=== PATIENT | male | born 1975 | race Caucasian/White ===

== ENCOUNTER 2022-04-22 09:15 | Outpatient (CLI) | payer OTHER, SELFPAY ==
[2022-04-22 18:47] LABS: Hematocrit 38.7 % (42.0-52.0); Hemoglobin 12.3 g/dL (14.0-18.0); Mean Corpuscular HGB Conc 31.8 g/dl (32-36); Mean Corpuscular Hemoglobin 28.5 pg (26-34); Mean Corpuscular Volume 89.6 fl (80-100); Mean Platelet Volume 11.4 fl (7.4-10.4); Platelet Count Result 171 k/mm3 (150-375); Red Blood Count 4.32 M/mm3 (4.6-6.20); Red Cell Distribution Width 13.6 % (11.5-14.5); White Blood Count 5.1 K/mm3 (4.5-10.0)
[2022-04-22 20:39] LABS: Prostate Specific Antigen 0.4 ng/mL (< OR = 4.0)
[2022-04-22 21:24] LABS: Alanine Aminotransferase 59 U/L (6-50); Albumin Level 4.4 g/dL (3.5-5.1); Alkaline Phosphatase 94 U/L (38-126); Anion Gap 10 mmol/L (8-16); Aspartate Amino Transferase 41 U/L (17-59); Bilirubin,Total 0.6 mg/dL (0.2-1.3); Blood Urea Nitrogen 22 mg/dL (9-20); Carbon Dioxide 28 mmol/L (22-30); Chloride 102 mmol/L (98-107); Estimated Glomerular Filt Rate > 60; Glucose 97 mg/dL (65-110); Potassium 3.9 mmol/L (3.4-5.0); Sodium 140 mmol/L (137-145)
[2022-04-25 05:53] LABS: Prolactin 9.5 ng/mL (***)
[2022-04-27 18:51] LABS: Testosterone Total 253 ng/dL (250-1100)
== END 2022-04-22 09:16 | disposition home or self-care (01) ==
LOC: ANHGOSHLAB 09:19
PROVIDERS: PCP Internal Medicine; Visit Provider Internal Medicine
DX: Z12.5 Encounter for screening for malignant neoplasm of prostate (principal); E29.1 Testicular hypofunction; I42.9 Cardiomyopathy, unspecified; I51.7 Cardiomegaly
CPT/HCPCS: 36415; 80053; 84146; 84153; 84402; 84403; 85027; G0103

== ENCOUNTER 2022-08-05 10:47 | Outpatient (CLI) | payer OTHER, SELFPAY ==
[2022-08-05 19:47] LABS: Basophils Percent Auto 0.3 % (0.2-1.2); Eosinophils Absolute Auto 0.2 K/mm3 (0-0.3); Eosinophils Percent Auto 2.6 % (0-4.4); Hematocrit 42.1 % (42.0-52.0); Hemoglobin 13.1 g/dL (14.0-18.0); Immature Granulocyte Absolute 0.02 K/mm3 (0.00-0.031); Immature Granulocyte Percent A 0.3 % (0-0.5); Lymphocytes Absolute Auto 0.94 K/mm3 (0.9-3.2); Mean Corpuscular HGB Conc 31.1 g/dl (32-36); Mean Corpuscular Hemoglobin 26.5 pg (26-34); Mean Corpuscular Volume 85.2 fl (80-100); Mean Platelet Volume 9.8 fl (7.4-10.4); Monocytes Absolute Auto 0.6 K/mm3 (0.1-0.6); Monocytes Percent Auto 10.9 % (2.6-8.5); Neutrophils Absolute Auto 4.1 K/mm3 (1.3-6.7); Neutrophils Percent Auto 69.9 % (45.5-73.1); Platelet Count Result 186 k/mm3 (150-375); Red Blood Count 4.94 M/mm3 (4.6-6.20); Red Cell Distribution Width 14.5 % (11.5-14.5); White Blood Count 5.9 K/mm3 (4.5-10.0)
[2022-08-05 20:37] LABS: Anion Gap 6 mmol/L (8-16); Blood Urea Nitrogen 35 mg/dL (9-20); Calcium 8.5 mg/dL (8.4-10.2); Carbon Dioxide 30 mmol/L (22-30); Chloride 99 mmol/L (98-107); Estimated Glomerular Filt Rate 51; Glucose 86 mg/dL (65-110); Potassium 4.6 mmol/L (3.4-5.0); Sodium 135 mmol/L (137-145)
[2022-08-09 22:51] LABS: Tacrolimus Prograf 13.6 mcg/L
== END 2022-08-05 10:48 | disposition home or self-care (01) ==
LOC: ANHGOSHLAB 10:49
PROVIDERS: PCP Internal Medicine; Visit Provider Nurse Practitioner
DX: Z13.29 Encounter for screening for other suspected endocrine disorder (principal); Z94.1 Heart transplant status
CPT/HCPCS: 36415; 80048; 80197; 85025

== ENCOUNTER 2022-09-06 11:09 | Outpatient (CLI) | payer OTHER, SELFPAY ==
[2022-09-06 21:23] LABS: Anion Gap 6 mmol/L (8-16); Blood Urea Nitrogen 33 mg/dL (9-20); Calcium 8.4 mg/dL (8.4-10.2); Carbon Dioxide 29 mmol/L (22-30); Chloride 101 mmol/L (98-107); Estimated Glomerular Filt Rate 60; Glucose 78 mg/dL (65-110); Potassium 4.3 mmol/L (3.4-5.0); Sodium 136 mmol/L (137-145)
[2022-09-06 21:47] LABS: Basophils Percent Auto 0.3 % (0.2-1.2); Eosinophils Absolute Auto 0.1 K/mm3 (0-0.3); Eosinophils Percent Auto 2.3 % (0-4.4); Hematocrit 43.6 % (42.0-52.0); Hemoglobin 13.5 g/dL (14.0-18.0); Immature Granulocyte Absolute 0.02 K/mm3 (0.00-0.031); Immature Granulocyte Percent A 0.3 % (0-0.5); Lymphocytes Absolute Auto 0.96 K/mm3 (0.9-3.2); Lymphocytes Percent Auto 16.1 % (18.3-44.2); Mean Corpuscular Hemoglobin 25.8 pg (26-34); Mean Corpuscular Volume 83.4 fl (80-100); Mean Platelet Volume 10.9 fl (7.4-10.4); Monocytes Absolute Auto 0.7 K/mm3 (0.1-0.6); Monocytes Percent Auto 12.4 % (2.6-8.5); Neutrophils Absolute Auto 4.1 K/mm3 (1.3-6.7); Neutrophils Percent Auto 68.6 % (45.5-73.1); Platelet Count Result 192 k/mm3 (150-375); Red Blood Count 5.23 M/mm3 (4.6-6.20); Red Cell Distribution Width 16.6 % (11.5-14.5)
[2022-09-10 11:00] LABS: Tacrolimus Prograf 9.2 mcg/L
== END 2022-09-06 11:10 | disposition home or self-care (01) ==
LOC: ANHGOSHLAB 11:14
PROVIDERS: PCP Internal Medicine; Visit Provider Internal Medicine
DX: Z94.1 Heart transplant status (principal)
CPT/HCPCS: 36415; 80048; 80197; 85025

== ENCOUNTER 2022-10-04 10:36 | Outpatient (CLI) | payer OTHER, SELFPAY ==
[2022-10-04 21:28] LABS: Alanine Aminotransferase 43 U/L (6-50); Albumin Level 4.5 g/dL (3.5-5.1); Alkaline Phosphatase 50 U/L (38-126); Aspartate Amino Transferase 52 U/L (17-59); Bilirubin,Total 0.9 mg/dL (0.2-1.3)
[2022-10-13 14:40] LABS: Testosterone Free 290.3 pg/mL (35.0-155.0); Testosterone Total 1161 ng/dL (250-1100)
== END 2022-10-04 10:37 | disposition home or self-care (01) ==
LOC: ANHGOSHLAB 10:39
PROVIDERS: PCP Internal Medicine; Visit Provider Internal Medicine
DX: Z51.81 Encounter for therapeutic drug level monitoring (principal); Z79.890 Hormone replacement therapy
CPT/HCPCS: 36415; 80076; 84402; 84403

== ENCOUNTER 2022-10-21 11:28 | Outpatient (CLI) | payer OTHER, SELFPAY ==
[2022-10-21 20:06] LABS: Prostate Specific Antigen 0.5 ng/mL (< OR = 4.0)
[2022-10-27 16:14] LABS: Testosterone Free 376.5 pg/mL (35.0-155.0); Testosterone Total 1488 ng/dL (250-1100)
== END 2022-10-21 11:29 | disposition home or self-care (01) ==
LOC: ANHGOSHLAB 11:30
PROVIDERS: PCP Internal Medicine; Visit Provider Internal Medicine
DX: Z12.5 Encounter for screening for malignant neoplasm of prostate (principal); Z79.890 Hormone replacement therapy
CPT/HCPCS: 36415; 84153; 84402; 84403; G0103

== ENCOUNTER 2022-11-21 18:59 | Emergency (ER) | payer OTHER, SELFPAY ==
[2022-11-21] VITALS (14 sets, daily range): BP systolic 137; BP diastolic 89; PULSE 104–111; RESP 15–30; TEMP 38.1; O2SAT 93–100
--- NOTE | ~2022-11-21 | XR_ITS ---
Clinical Indication: Pneumonia PA and lateral views of the chest: Comparison: 01/20/2015 Findings: The lungs are clear, without evidence of focal consolidation or pleural effusion. Cardiome diastinal silhouette is stable. Bones and soft tissues are unremarkable. Impression: Clear lungs. Reviewed, dictated and finalized at location . Impression: Clear lungs.
--- NOTE | 2022-11-21 19:28 | ECG_ITS ---
Measurements Intervals [place] Rate: 103 P: 71 SC: 166 QRS: 98 QRSD: 88 T: 56 QT: 307 QTc: 403 Interpretive Statements SINUS TACHYCARDIA POSSIBLE LEFT ATRIAL ENLARGEMENT [-0.1mV P WAVE IN V1/V2] INCOMPLETE RIGHT BUNDLE BRANCH BLOCK LOW QRS VOLTAGE ABNORMAL ECG NO PREVIOUS ECG AVAILABLE FOR COMPARISON Electronically Signed On 11-22-2022 7:07:28 CDT by Daryl Ralph M.D.
[2022-11-21] MEDS: ONDANSETRON INJ 4 MG/2 ML VIAL 8 MG IV PUSH (19:54)
[2022-11-21 19:57] LABS: Basophils Percent Auto 0.2 % (0.2-1.2); Eosinophils Absolute Auto 0.1 K/mm3 (0-0.3); Eosinophils Percent Auto 0.8 % (0-4.4); Hematocrit 51.1 % (42.0-52.0); Hemoglobin 16.2 g/dL (14.0-18.0); Immature Granulocyte Absolute 0.02 K/mm3 (0.00-0.031); Immature Granulocyte Percent A 0.3 % (0-0.5); Lymphocytes Absolute Auto 0.61 K/mm3 (0.9-3.2); Lymphocytes Percent Auto 9.5 % (18.3-44.2); Mean Corpuscular HGB Conc 31.7 g/dl (32-36); Mean Corpuscular Hemoglobin 24.8 pg (26-34); Mean Corpuscular Volume 78.3 fl (80-100); Mean Platelet Volume 9.2 fl (7.4-10.4); Monocytes Absolute Auto 0.5 K/mm3 (0.1-0.6); Monocytes Percent Auto 8.4 % (2.6-8.5); Neutrophils Absolute Auto 5.2 K/mm3 (1.3-6.7); Neutrophils Percent Auto 80.8 % (45.5-73.1); Platelet Count Result 152 k/mm3 (150-375); Red Blood Count 6.53 M/mm3 (4.6-6.20); Red Cell Distribution Width 19.8 % (11.5-14.5); White Blood Count 6.4 K/mm3 (4.5-10.0)
[2022-11-21] MEDS: SODIUM CHLORIDE 0.9% IV 2,000 ML 999 ML IV CONT (20:16)
[2022-11-21 20:22] LABS: Strep Group A RT-PCR NOT DETECTED (Negative)
[2022-11-21] MEDS: ALBUTEROL SULFATE NEB 2.5 MG/3 ML INH 5 MG INHALATION (20:29)
[2022-11-21] MEDS: IPRATROPIUM BR 0.02% INH SOLN 0.5 MG/2.5 ML VIAL 1 MG INHALATION (20:29)
[2022-11-21 20:49] LABS: Alanine Aminotransferase 35 U/L (6-50); Albumin Level 4.5 g/dL (3.5-5.1); Alkaline Phosphatase 45 U/L (38-126); Anion Gap 6 mmol/L (8-16); Aspartate Amino Transferase 34 U/L (17-59); Bilirubin,Total 1.5 mg/dL (0.2-1.3); Blood Urea Nitrogen 26 mg/dL (9-20); Calcium 8.1 mg/dL (8.4-10.2); Carbon Dioxide 28 mmol/L (22-30); Chloride 102 mmol/L (98-107); Estimated CRCL calculation 91 ml/min; Estimated Glomerular Filt Rate 60; Glucose 112 mg/dL (65-110); Lipase 43 U/L (23-300); Potassium 4.7 mmol/L (3.4-5.0); Sodium 136 mmol/L (137-145)
[2022-11-21 21:00] LABS: Troponin I < 0.012 ng/mL (0.000-0.034)
--- NOTE | 2022-11-21 21:15 | ED.GENADULT ---
HPI - General Adult General Chief complaint: Nausea/Vomiting/Diarrhea Stated complaint: ST, N/V/D Time Seen by Provider: 11/21/22 19:34 History of Present Illness HPI narrative: This is a 47-year-old male presenting to ED with a chief complaint of flu-like symptoms times 1 day. Patient said he woke up this morning feeling ill. He has had multiple episodes of nausea vomiting and congestion. He has also had several episodes of diarrhea. Patient has several sick children at home are sick with strep throat. The patient denies difficulty breathing, chest pain, Lower extremity edema, abdominal pain or urinary symptoms. The patient does have a history of a heart transplant. He is well controlled but is on immunomodulators. Related Data Home Medications Medication Instructions Recorded Confirmed aspirin 81 mg tablet,delayed 81 mg PO DAILY 08/29/19 04/22/22 release (Adult Low Dose Aspirin) furosemide 40 mg tablet (Lasix) 40 mg PO QAM 08/29/19 04/22/22 Magic Mouthwash 50 mL suspension 10 ml PO Q4H PRN #50 mL 04/22/22 04/22/22 cholecalciferol (vitamin D3) 50 50 mcg PO DAILY 04/22/22 04/22/22 mcg (2,000 unit) capsule losartan 50 mg tablet 50 mg PO DAILY 04/22/22 04/22/22 omeprazole 40 mg capsule,delayed 40 mg PO DAILY 04/22/22 04/22/22 release prednisone 5 mg tablet 5 mg PO DAILY 04/22/22 04/22/22 rosuvastatin 20 mg tablet (Crestor) 20 mg PO DAILY 04/22/22 04/22/22 sirolimus 0.5 mg tablet 0.5 mg PO DAILY 04/22/22 04/22/22 sulfamethoxazole 400 1 tablet PO .MWF 04/22/22 04/22/22 mg-trimethoprim 80 mg tablet (Bactrim) tacrolimus 4 mg tablet,extended 4 mg PO BID 04/22/22 04/22/22 release 24 hr Allergies Allergy/AdvReac Type Severity Reaction Status Date / Time Penicillins Allergy Unknown Unknown Verified 06/01/22 15:09 cephalexin AdvReac Intermediate Hives Verified 06/01/22 15:09 [facility] Past Medical History Medical History Cardiomyopathy CHF (congestive heart failure) Heart transplant recipient 03/22/2021 HTN (hypertension) Mitral valve prolapse TEODORA (obstructive sleep apnea) Sternum pain Surgical History Surgical History H/O tricuspid valve repair History of heart valve replacement History of mitral valve repair Status post heart transplant Family History Family History Father Hypertension Social History Social History Smoking status: Never smoker Alcohol intake: former Alcohol use details: rarely Substance use: never Substance use type: does not use Exam Narrative: APPEARANCE: patient appears uncomfortable Head: minor erythema and exudates to the posterior oropharynx EYES: EOMI, NOSE: Atraumatic NECK: Trachea midline RESPIRATORY: No increased rate of breathing, scattered expiratory wheezing, CARDIOVASCULAR: RRR, no peripheral edema ABDOMINAL: Non-distended soft nontender no guarding rebound MUSCULOSKELETAl: No obvious deformities NEURO: Alert. Moving 4/4 extremities SKIN:: Warm, dry. Normal color PSYCHIATRIC: Normal affect Course Vital Signs Vital signs: Vital Signs Temperature 100.6 F H 11/21/22 19:10 Pulse Rate 108 H 11/21/22 19:10 Respiratory Rate 30 H 11/21/22 19:10 Blood Pressure 137/89 11/21/22 19:10 Pulse Oximetry 96 11/21/22 19:10 Oxygen Delivery Room Air 11/21/22 19:10 Temperature 100.6 F H 11/21/22 19:10 Pulse Rate 105 H 11/21/22 23:15 Respiratory Rate 23 H 11/21/22 23:15 Blood Pressure 137/89 11/21/22 19:10 Pulse Oximetry 99 11/21/22 23:15 Oxygen Delivery Room Air 11/21/22 19:10 Medical Decision Making MDM Narrative Medical decision making narrative: -Presentation: 47-year-old male with history of heart transplant presenting ED with flu-like symptoms x1 day. -DDX includes but is not limited to:
[2022-11-21] MEDS: AMOXICILLIN 500 MG CAPSULE PO (21:58)
[2022-11-21 22:10] LABS: Influenza A QL RT-PCR Negative (Negative); Influenza B QL RT-PCR Negative (Negative); RSV RNA, RT-PCR Negative (Negative); SARS-CoV-2 RNA PCR Negative (Negative)
[2022-11-21 23:57] LABS: Troponin I < 0.012 ng/mL (0.000-0.034)
== END 2022-11-22 00:46 | disposition home or self-care (01) ==
PROVIDERS: Emergency Provider Emergency Medicine; PCP Internal Medicine
DX: B34.9 Viral infection, unspecified (principal); I11.0 Hypertensive heart disease with heart failure; I50.9 Heart failure, unspecified; Z94.1 Heart transplant status; Z20.822 Contact with and (suspected) exposure to COVID-19
CPT/HCPCS: 36415; 71046; 80053; 83690; 84484; 85025; 87637; 87651; 93005; 94640; 96361; 96374; 96375; 99284; A9270; J0131; J2405; J7030

== ENCOUNTER 2023-02-06 14:10 | Emergency (ER) | payer OTHER, SELFPAY ==
--- NOTE | ~2023-02-06 | XR_ITS ---
EXAMINATION: XR chest 2V Exam Date/Time: 02/06/2023 14:35 CDT HISTORY: sob, hx heart transplant Comparison: 11/21/2022. RESULT: Lines, tubes, and devices: Intact sternotomy wires. Mediastinal vascular clips. Lungs and pleura: Clear. Cardiomediastinal silhouette: Stable. Other: No acute osseous or upper abdominal finding. IMPRESSION: No acute cardiopulmonary process. Reviewed, dictated and finalized at location K.
--- NOTE | 2023-02-06 14:17 | ED.GENADULT ---
HPI - General Adult General Chief complaint: Upper Respiratory Infection Stated complaint: trouble breathing,high temp Source: patient and RN notes reviewed History of Present Illness HPI narrative: 47-year-old male with history of heart transplant in 2020, presents to urgent care with complaints of shortness of breath and subjective fever since last night. Pt reports generalized body aches and fatigue. Pt states his SOB was worse when he lies down. Denies any chest pain, abdominal pain, vomiting, cough, sore throat, congestion, ear pain, or diarrhea. Pt took Tylenol BRAIDED RUG MAKER. Related Data Home Medications Medication Instructions Recorded Confirmed cholecalciferol (vitamin D3) 50 50 mcg PO DAILY 04/22/22 02/06/23 mcg (2,000 unit) capsule losartan 50 mg tablet 50 mg PO DAILY 04/22/22 02/06/23 prednisone 5 mg tablet 5 mg PO DAILY 04/22/22 02/06/23 rosuvastatin 20 mg tablet (Crestor) 20 mg PO DAILY 04/22/22 02/06/23 sulfamethoxazole 400 1 tablet PO .MWF 04/22/22 02/06/23 mg-trimethoprim 80 mg tablet (Bactrim) tacrolimus 4 mg tablet,extended 4 mg PO BID 04/22/22 02/06/23 release 24 hr mycophenolate mofetil 500 mg tablet 500 mg PO BID 02/06/23 02/06/23 Allergies Allergy/AdvReac Type Severity Reaction Status Date / Time Penicillins Allergy Unknown Unknown Verified 02/06/23 14:19 cephalexin AdvReac Intermediate Hives Verified 02/06/23 14:19 Review of Systems Review of Systems: CONSTITUTIONAL: subjective fevers, fatigued EYES: Denies visual changes, redness, or discharge. ENT: Denies otalgia and sore throat CARDIOVASCULAR: Denies chest pain, palpitations, or edema. RESPIRATORY: dyspnea GASTROINTESTINAL: Denies abdominal pain, nausea, vomiting, or diarrhea. GENITOURINARY: Denies dysuria or hematuria. SKIN: Denies rash or itching. MUSCULOSKELETAL: body aches NEUROLOGIC: Denies headache, numbness, or weakness. Pertinent positives per HPI. [facility] Past Medical History Medical History Cardiomyopathy CHF (congestive heart failure) CPAP (continuous positive airway pressure) dependence Heart transplant recipient 03/22/2021 HTN (hypertension) Mitral valve prolapse TEODORA (obstructive sleep apnea) Sternum pain Surgical History Surgical History H/O tricuspid valve repair History of heart valve replacement History of mitral valve repair Status post heart transplant Family History Family History Father Hypertension Social History Social History Smoking status: Never smoker Alcohol intake: former Alcohol use details: rarely Substance use: never Substance use type: does not use Lack of Transportation: No Lack of Food: Never True Current Housing: I Have Housing Concerned About Future Housing: No Difficulty Paying Gas/Electric Bills: Decline to Answer Difficulty Paying for Meds: Decline to Answer Currently Unemployed: No Education: Bachelor's Degree Difficulty w/ Childcare or Family Care: Decline to Answer Comments At the time of my signature, I reviewed and agree with the nursing past medical, surgical, social, and family history. There is no relevant family history pertinent to the patient complaint. Exam Narrative: GENERAL: This is a well-nourished, well-developed patient, in no apparent distress. HEAD: normocephalic, atraumatic. EYES: Sclera clear/white. Vision is grossly intact. EARS: External ears normal, auditory canals clear and without drainage, TMs normal without perforation. Hearing grossly intact. NOSE: External nose normal with no obvious nasal discharge, nares without redness, no rhinorrhea. THROAT: Mucous membranes moist, posterior pharynx clear. NECK: Neck supple, non-tender without lymphadenopathy, masses or thyromegaly. CARDIOVASCULAR
[2023-02-06 14:22] VITALS: BP 132/81; PULSE 103; RESP 16; TEMP 37.2; O2SAT 97
[2023-02-06 14:23] VITALS: BP 132/81; PULSE 103; RESP 16; TEMP 37.2; O2SAT 97
== END 2023-02-06 15:56 | disposition left against medical advice (07) ==
PROVIDERS: Emergency Provider Nurse Practitioner Family; PCP Internal Medicine
DX: J02.0 Streptococcal pharyngitis (principal); R06.00 Dyspnea, unspecified; Z94.1 Heart transplant status; I11.0 Hypertensive heart disease with heart failure; I50.9 Heart failure, unspecified; I34.1 Nonrheumatic mitral (valve) prolapse
CPT/HCPCS: 71046; 87880; 99213; G0463

== ENCOUNTER 2023-02-16 10:38 | Outpatient (CLI) | payer OTHER, SELFPAY ==
[2023-02-16 17:00] LABS: Folic Acid > 20.0 ng/mL (2.76->20)
[2023-02-21 13:01] LABS: Testosterone Free 529.4 pg/mL (35.0-155.0); Testosterone Total 1619 ng/dL (250-1100)
== END 2023-02-16 10:39 | disposition home or self-care (01) ==
LOC: ANHGOSHLAB 10:40
PROVIDERS: PCP Internal Medicine; Visit Provider Internal Medicine
DX: E29.1 Testicular hypofunction (principal); R53.83 Other fatigue; Z79.890 Hormone replacement therapy
CPT/HCPCS: 36415; 82607; 82746; 84402; 84403; 84443

== ENCOUNTER → 2023-04-05 13:34 | Outpatient (CLI) | payer OTHER, SELFPAY ==
--- NOTE | ~2023-04-05 | XR_ITS ---
EXAMINATION: XR chest 2V DATE: 04/05/2023 13:49 INDICATION: Heart transplant. TECHNIQUE: Frontal and lateral views of the chest were obtained on 4 radiographs. COMPARISON: Chest 2 views 02/06/2023 FINDINGS: There is no pneumonia, pleural effusion, or pneumothorax. The heart size is normal. There a re median sternotomy wires and mediastinal surgical clips. IMPRESSION: 1. No acute cardiopulmonary disease. Reviewed, dictated and finalized at location A.
== END ==
PROVIDERS: PCP Internal Medicine
DX: Z94.1 Heart transplant status (principal)
CPT/HCPCS: 71046

== ENCOUNTER 2023-09-16 10:52 | Outpatient (CLI) | payer OTHER, SELFPAY ==
[2023-09-16 17:50] LABS: Alanine Aminotransferase 39 U/L (6-50); Albumin Level 4.4 g/dL (3.5-5.1); Alkaline Phosphatase 41 U/L (38-126); Anion Gap 5 mmol/L (8-16); Aspartate Amino Transferase 59 U/L (17-59); Bilirubin,Total 1.3 mg/dL (0.2-1.3); Blood Urea Nitrogen 24 mg/dL (9-20); Carbon Dioxide 32 mmol/L (22-30); Chloride 101 mmol/L (98-107); Cholesterol 89 mg/dL (0-200); Estimated Glomerular Filt Rate > 60; Glucose 72 mg/dL (65-110); HDL Direct 34 mg/dL; Potassium 4.5 mmol/L (3.4-5.0); Sodium 138 mmol/L (137-145); Triglycerides 63 mg/dL (<150)
[2023-09-16 17:51] LABS: Basophils Absolute Auto 0.1 K/mm3 (0.0-0.1); Basophils Percent Auto 0.7 % (0.2-1.2); Eosinophils Absolute Auto 0.1 K/mm3 (0-0.3); Eosinophils Percent Auto 1.8 % (0-4.4); Hematocrit 53.4 % (42.0-52.0); Immature Granulocyte Absolute 0.02 K/mm3 (0.00-0.031); Immature Granulocyte Percent A 0.3 % (0-0.5); Lymphocytes Absolute Auto 1.49 K/mm3 (0.9-3.2); Lymphocytes Percent Auto 19.6 % (18.3-44.2); Mean Corpuscular HGB Conc 31.8 g/dl (32-36); Mean Corpuscular Hemoglobin 27.9 pg (26-34); Mean Corpuscular Volume 87.7 fl (80-100); Monocytes Absolute Auto 0.8 K/mm3 (0.1-0.6); Monocytes Percent Auto 10.2 % (2.6-8.5); Neutrophils Absolute Auto 5.1 K/mm3 (1.3-6.7); Neutrophils Percent Auto 67.4 % (45.5-73.1); Platelet Count Result 147 k/mm3 (150-375); Red Blood Count 6.09 M/mm3 (4.6-6.20); Red Cell Distribution Width 17.3 % (11.5-14.5); White Blood Count 7.6 K/mm3 (4.5-10.0)
[2023-09-16 18:01] LABS: LDL Cholesterol Direct 47 mg/dL
[2023-09-16 18:21] LABS: Prostate Specific Antigen 0.6 ng/mL (< OR = 4.0)
[2023-09-20 12:38] LABS: Testosterone Free 383.6 pg/mL (35.0-155.0); Testosterone Total 1442 ng/dL (250-1100)
== END 2023-09-16 10:53 | disposition home or self-care (01) ==
LOC: ANHGOSHLAB 10:54
PROVIDERS: PCP Internal Medicine; Visit Provider Clinical Nurse Specialist
DX: E29.1 Testicular hypofunction (principal); I10 Essential (primary) hypertension; Z79.890 Hormone replacement therapy
CPT/HCPCS: 36415; 80053; 80061; 84153; 84402; 84403; 85025

== ENCOUNTER 2023-10-19 10:44 | Outpatient (CLI) | payer OTHER, SELFPAY ==
[2023-10-19 15:03] LABS: Basophils Percent Auto 0.4 % (0.2-1.2); Eosinophils Absolute Auto 0.2 K/mm3 (0-0.3); Eosinophils Percent Auto 2.5 % (0-4.4); Hematocrit 55.1 % (42.0-52.0); Hemoglobin 17.5 g/dL (14.0-18.0); Immature Granulocyte Absolute 0.02 K/mm3 (0.00-0.031); Immature Granulocyte Percent A 0.3 % (0-0.5); Lymphocytes Absolute Auto 1.32 K/mm3 (0.9-3.2); Lymphocytes Percent Auto 19.4 % (18.3-44.2); Mean Corpuscular HGB Conc 31.8 g/dl (32-36); Mean Corpuscular Hemoglobin 28.4 pg (26-34); Mean Corpuscular Volume 89.4 fl (80-100); Mean Platelet Volume 10.7 fl (7.4-10.4); Monocytes Absolute Auto 0.7 K/mm3 (0.1-0.6); Monocytes Percent Auto 10.8 % (2.6-8.5); Neutrophils Absolute Auto 4.5 K/mm3 (1.3-6.7); Neutrophils Percent Auto 66.6 % (45.5-73.1); Platelet Count Result 145 k/mm3 (150-375); Red Blood Count 6.16 M/mm3 (4.6-6.20); Red Cell Distribution Width 17.7 % (11.5-14.5); White Blood Count 6.8 K/mm3 (4.5-10.0)
[2023-10-19 15:23] LABS: Anion Gap 6 mmol/L (8-16); Blood Urea Nitrogen 24 mg/dL (9-20); Calcium 8.9 mg/dL (8.4-10.2); Carbon Dioxide 26 mmol/L (22-30); Chloride 104 mmol/L (98-107); Estimated Glomerular Filt Rate > 60; Glucose 92 mg/dL (65-110); Potassium 4.2 mmol/L (3.4-5.0); Sodium 136 mmol/L (137-145)
[2023-10-22 10:53] LABS: Tacrolimus Prograf 7.9 mcg/L
== END 2023-10-19 10:45 | disposition home or self-care (01) ==
LOC: ANHGOSHLAB 10:48
PROVIDERS: PCP Internal Medicine
DX: Z94.1 Heart transplant status (principal)
CPT/HCPCS: 36415; 80048; 80197; 85025

== ENCOUNTER 2023-12-02 10:44 | Outpatient (CLI) | payer OTHER, SELFPAY ==
[2023-12-02 20:15] LABS: Mean Corpuscular HGB Conc 32.7 g/dl (32-36); Mean Corpuscular Hemoglobin 29.5 pg (26-34); Mean Platelet Volume 9.9 fl (7.4-10.4); Platelet Count Result 127 k/mm3 (150-375); Red Blood Count 6.11 M/mm3 (4.6-6.20); Red Cell Distribution Width 17.2 % (11.5-14.5); White Blood Count 7.3 K/mm3 (4.5-10.0)
[2023-12-07 11:13] LABS: Testosterone Free 418.5 pg/mL (35.0-155.0); Testosterone Total 1548 ng/dL (250-1100)
== END 2023-12-02 10:45 | disposition home or self-care (01) ==
LOC: ANHGOSHLAB 10:45
PROVIDERS: PCP Internal Medicine; Visit Provider Internal Medicine
DX: E29.1 Testicular hypofunction (principal); Z79.890 Hormone replacement therapy
CPT/HCPCS: 36415; 84402; 84403; 85027

== ENCOUNTER 2024-05-24 11:22 | Outpatient (CLI) | payer OTHER, SELFPAY ==
[2024-05-24 18:51] LABS: Basophils Percent Auto 0.4 % (0.2-1.2); Eosinophils Absolute Auto 0.2 K/mm3 (0-0.3); Eosinophils Percent Auto 2.5 % (0-4.4); Hemoglobin 17.3 g/dL (14.0-18.0); Immature Granulocyte Absolute 0.02 K/mm3 (0.00-0.031); Immature Granulocyte Percent A 0.3 % (0-0.5); Lymphocytes Absolute Auto 1.25 K/mm3 (0.9-3.2); Lymphocytes Percent Auto 18.4 % (18.3-44.2); Mean Corpuscular HGB Conc 32.6 g/dl (32-36); Mean Corpuscular Hemoglobin 30.2 pg (26-34); Mean Corpuscular Volume 92.7 fl (80-100); Mean Platelet Volume 10.2 fl (7.4-10.4); Monocytes Absolute Auto 0.8 K/mm3 (0.1-0.6); Monocytes Percent Auto 11.2 % (2.6-8.5); Neutrophils Absolute Auto 4.6 K/mm3 (1.3-6.7); Neutrophils Percent Auto 67.2 % (45.5-73.1); Platelet Count Result 140 k/mm3 (150-375); Red Blood Count 5.72 M/mm3 (4.6-6.20); Red Cell Distribution Width 14.6 % (11.5-14.5); White Blood Count 6.8 K/mm3 (4.5-10.0)
[2024-05-31 18:03] LABS: Testosterone Free 166.5 pg/mL (35.0-155.0); Testosterone Total 561 ng/dL (250-1100)
== END 2024-05-24 11:23 | disposition home or self-care (01) ==
LOC: ANHGOSHLAB 11:25
PROVIDERS: PCP Internal Medicine; Visit Provider Internal Medicine
DX: E78.00 Pure hypercholesterolemia, unspecified (principal); I10 Essential (primary) hypertension; Z79.890 Hormone replacement therapy; Z94.1 Heart transplant status
CPT/HCPCS: 36415; 84402; 84403; 85025

== ENCOUNTER 2024-05-24 11:29 | Outpatient (RCR) | payer OTHER, SELFPAY ==
[2024-05-24 19:51] LABS: Anion Gap 8 mmol/L (4-12); Blood Urea Nitrogen 23 mg/dL (9-20); Calcium 9.1 mg/dL (8.4-10.2); Carbon Dioxide 31 mmol/L (22-30); Chloride 99 mmol/L (98-107); Estimated Glomerular Filt Rate 59; Glucose 86 mg/dL (65-110); Potassium 4.6 mmol/L (3.4-5.0); Sodium 138 mmol/L (137-145)
[2024-05-25 16:27] LABS: Tacrolimus Prograf 6.7 mcg/L
== END 2024-08-22 23:59 | disposition home or self-care (01) ==
LOC: ANHGOSHLAB 11:29
PROVIDERS: PCP Internal Medicine
DX: Z94.1 Heart transplant status (principal)
CPT/HCPCS: 36415; 80048; 80197; 84402; 84403; 85025

== ENCOUNTER 2024-08-28 10:58 | Outpatient (RCR) | payer OTHER, SELFPAY ==
[2024-08-28 13:36] LABS: Basophils Percent Auto 0.3 % (0.2-1.2); Eosinophils Absolute Auto 0.2 K/mm3 (0-0.3); Eosinophils Percent Auto 5.5 % (0-4.4); Hematocrit 55.1 % (42.0-52.0); Hemoglobin 17.3 g/dL (14.0-18.0); Immature Granulocyte Absolute 0.01 K/mm3 (0.00-0.031); Immature Granulocyte Percent A 0.3 % (0-0.5); Lymphocytes Absolute Auto 1.08 K/mm3 (0.9-3.2); Lymphocytes Percent Auto 28.3 % (18.3-44.2); Mean Corpuscular HGB Conc 31.4 g/dl (32-36); Mean Corpuscular Volume 92.3 fl (80-100); Mean Platelet Volume 10.1 fl (7.4-10.4); Monocytes Absolute Auto 0.6 K/mm3 (0.1-0.6); Monocytes Percent Auto 15.4 % (2.6-8.5); Neutrophils Absolute Auto 1.9 K/mm3 (1.3-6.7); Neutrophils Percent Auto 50.2 % (45.5-73.1); Platelet Count Result 135 k/mm3 (150-375); Red Blood Count 5.97 M/mm3 (4.6-6.20); Red Cell Distribution Width 17.1 % (11.5-14.5); White Blood Count 3.8 K/mm3 (4.5-10.0)
[2024-08-28 15:15] LABS: Anion Gap 9 mmol/L (4-12); Blood Urea Nitrogen 31 mg/dL (9-20); Calcium 8.3 mg/dL (8.4-10.2); Carbon Dioxide 30 mmol/L (22-30); Chloride 101 mmol/L (98-107); Estimated Glomerular Filt Rate 60; Glucose 77 mg/dL (65-110); Potassium 4.3 mmol/L (3.4-5.0); Sodium 140 mmol/L (137-145)
[2024-08-30 08:09] LABS: Tacrolimus Prograf 12.6 mcg/L
== END 2024-11-26 23:59 | disposition home or self-care (01) ==
LOC: ANHGOSHLAB 10:58
PROVIDERS: PCP Internal Medicine
DX: Z94.1 Heart transplant status (principal)
CPT/HCPCS: 36415; 80048; 80197; 85025

== ENCOUNTER 2024-12-06 10:41 | Outpatient (RCR) | payer OTHER, SELFPAY ==
[2024-12-06 19:43] LABS: Hematocrit 54.2 % (42.0-52.0); Hemoglobin 17.1 g/dL (14.0-18.0); Immature Granulocyte Percent A 0.1 % (0-0.5); Lymphocytes Absolute Auto 1.36 K/mm3 (0.9-3.2); Mean Corpuscular HGB Conc 31.5 g/dl (32-36); Mean Corpuscular Hemoglobin 29.1 pg (26-34); Mean Corpuscular Volume 92.2 fl (80-100); Nucleated Red Blood Cells Absolute Auto 0.000 K/mm3 (0.0-0.012); Nucleated Red Blood Cells Perc 0.0 % (0.0-0.2); Platelet Count Result 127 k/mm3 (150-375); Red Blood Count 5.88 M/mm3 (4.6-6.20); White Blood Count 7.1 K/mm3 (4.5-10.0)
[2024-12-06 20:22] LABS: Anion Gap 8 mmol/L (4-12); Blood Urea Nitrogen 27 mg/dL (9-20); Calcium 8.6 mg/dL (8.4-10.2); Carbon Dioxide 30 mmol/L (22-30); Chloride 102 mmol/L (98-107); Estimated Glomerular Filt Rate 60; Glucose 83 mg/dL (65-110); Potassium 4.8 mmol/L (3.4-5.0); Sodium 140 mmol/L (137-145)
[2024-12-07 13:50] LABS: Tacrolimus Prograf. 9.9 mcg/L
== END 2025-03-06 23:59 | disposition home or self-care (01) ==
LOC: ANHGOSHLAB 10:41
PROVIDERS: PCP Internal Medicine; Visit Provider Internal Medicine
DX: Z94.1 Heart transplant status (principal)
CPT/HCPCS: 36415; 80048; 80197; 85025

== ENCOUNTER 2024-12-06 10:45 | Outpatient (CLI) | payer OTHER, SELFPAY ==
--- OUTSIDE RECORDS SUMMARY | 2024-12-06 10:56 | XMS_ITS | Clinical Summary ---
Author Organization [facility] Address [address] [place] [address] Care Team Providers Care Compound Mixer Name Role Phone Luis F Hughes DO Primary Care Provider [phone] Source Comments [facility],non-owned Affiliates and Associated Physician Practices is amultiple site organization consisting of ambulatory clinics and hospital sitesin [place], [place], [place] and [place]. This disclosure is being madepursuant to the Care Everywhere program and may not contain all information available regarding this patient. Last updated 18.[facility] Allergies Active Allergy Reactions Criticality Noted Date Comments Penicillins Anaphylaxis High 04/01/2016 Medications * Be aware that medications may not be up to date on this document. Alwaysverify current medications with the patient. aspirin (ASPIRIN) 81 MG tablet Take 81 mg by mouth once daily Active furosemide (LASIX) 40 MG tablet Take 40 mg by mouth once daily Active LISINOPRIL PO Active Carvedilol (COREG PO) Active Warfarin Sodium (COUMADIN PO) Active Active Problems No known active problems Immunizations Immunization Administration Dates Next Due INFLUENZA VACCINE, QUADR. (F LUZONE; FLULAVAL; FLUARIX; AFLURIA QUADRIVALENT; 6MO+), 0.5 ML (IIV4) 05/16/2017 Social History Tobacco Use Types Packs/Day Years Used Date Smoking Tobacco: Never Smokeless Tobacco: Never Alcohol Use Standard Drinks/Week Comments Not Asked 0 (1 standard drink = 0.6 oz pur e alcohol) Sex and Gender Information Value Date Recorded Sex Assigned at Not on file Legal Sex Male 3:02 PM CDT Gender Identity Not on file Sexual Orientation Not on file Last Filed Vital Signs Vital Sign Reading Time Taken Comments Blood Pressure 106/74 04/16/2019 3:46 PM CDT Pulse 89 04/16/2019 3:46 PM CDT Temperature 37.9 C (100.2 F) 04/16/2019 3:46 PM CDT Respiratory Rate 16 04/16/2019 3:46 PM CDT Oxygen Saturation 97% 04/16/2019 3:46 PM CDT Inhaled Oxygen Concentration - - Weight 117.9 kg (260 lb) 04/16/2019 3:46 PM CDT Height 185.4 cm (6' 1 ) 04/16/2019 3:46 PM CDT Body Mass Index 34.3 04/16/2019 3:46 PM CDT Plan of Treatment Health Maintenance Due Date Last Done Comments COLOGUARD (AGES 45-75) - COL ON CA SCREENING 1977 COLON MONITORING 1977 COLONOSCOPY - COLON CA SCREENING 1977 CT COLONOGRAPHY - COLON CA SCREENING 1977 Colorectal Cancer Screening 1977 FIT - COLON CA SCREENING 1977 FLEX SIG - COLON CA SCREENING 1977 LIPID TESTING 1977 HIV SCREENING 1992 HEPATITIS C SCREENING 03/10/1995 DTAP/TDAP/TD VACCINES (1 - Tdap) 1996 HEPATITIS B VACCINE (1 of 3 - 19+ 3-dose series) 1996 SCREENING FOR DIABETES 04/16/2019 COVID-19 VACCINE ( - 2023-2 5 season) 2024 DEPRESSION SCREENING 08/01/2024 INFLUENZA VACCINE (Season Ended) 2025 05/16/2017, 05/11/2016 ZOSTER VACCINE (1 of 2) 2027 HIB VACCINE Aged Out No longer eligi ble based on patient's age to complete this topic HPV VACCINE Aged Out No longer eligi ble based on patient's age to complete this topic MENINGOCOCCAL (Group B) VACCINE SHARED DECISION-MAKING Aged Out No longer eligible based on patient's age to complete this topic MENINGOCOCCAL GROUPS A/C/Y/W VACCINE Aged Out No longer eligible b ased on patient's age to complete this topic PNEUMOCOCCAL VACCINE Aged Out No long er eligible based on patient's age to complete this topic Insurance [facility] Care Teams Compound Mixer Relationship Specialty Start Date End Date Luis F Hughes DO PCP - General Internal Medicine 04/01/16
--- OUTSIDE RECORDS SUMMARY | 2024-12-06 10:56 | XMS_ITS | Encounter Summary ---
Author Organization [facility] Healthcare Address [address] [place] [address] Care Team Providers Care Product Development Manager Name Role Phone Luis F Hughes DO Primary Care Provider [phone] Montse Julian MD Unavailable [phone] Joao Perez MD Unavailable [phone] Miscellaneous, Not In File Unavailable Unava ilable Encounter Details Date Type Department Care Team (Late st Contact Info) Description 09/11/2021 Telephone [facility] and [facility] Transplant Heart [phone] [place] [address] Mendy Cavazos Social History Tobacco Use Types Packs/Day Years Used Date Smoking Tobacco: Never Smokeless Tobacco: Never Alcohol Use Standard Drinks/Week Comments No 0 (1 standard drink = 0.6 oz pur e alcohol) AUDIT-C Answer Date Recorded Q1: How often do you have a drink containing alc ohol? Never 04/17/2021 Average Number of Drinks Not on file 021 Q3: How often do you have si x or more drinks on one occasion? 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 Gender Identity Male 10/12/2021 8:57 AM CDT Sexual Orientation Not on file documented as of this encounter Plan of Treatment Not on file documented as of this encounter Visit Diagnoses Not on filedocumented in this encounter Care Teams Product Development Manager Relationship Specialty Start Date End Date Luis F Hughes DO PCP - General 10/29/16 Montse Julian MD [address] [facility] [address] [place] [address] Consulting Physician Surgery 12/20/19 Joao Perez MD [id number] [place] [address] Surgeon Cardiothoracic Surgery 04/08/21 Miscellaneous, Not In File 04/15/21 12/06/21 documented as of this encounter
--- OUTSIDE RECORDS SUMMARY | 2024-12-06 10:56 | XMS_ITS | Encounter Summary ---
Author Organization [facility] Healthcare Address [address] [place] [address] Care Team Providers Care Psychometric Examiner Name Role Phone Luis F Hughes DO Primary Care Provider [phone] Montse Julian MD Unavailable [phone] Joao Perez MD Unavailable [phone] Miscellaneous, Not In File Unavailable Unava ilable Encounter Details Date Type Department Care Team (Late st Contact Info) Description 10/09/2021 Telephone 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 Gender Identity Male 10/12/2021 8:57 AM CDT Sexual Orientation Not on file documented as of this encounter Plan of Treatment Not on file documented as of this encounter Visit Diagnoses Not on filedocumented in this encounter Care Teams Psychometric Examiner Relationship Specialty Start Date End Date Luis F Hughes DO PCP - General 10/29/16 Montse Julian MD [address] [place] [address] Consulting Physician Surgery 12/20/19 Joao Perez MD [id number] [place] [address] Surgeon Cardiothoracic Surgery 04/08/21 Miscellaneous, Not In File 04/15/21 12/06/21 documented as of this encounter
--- OUTSIDE RECORDS SUMMARY | 2024-12-06 10:56 | XMS_ITS ---
Author Organization [facility] Address [address] [place] [address] Care Team Providers Care Direct Support Specialist Name Role Phone Luis F Hughes DO Primary Care Provider [phone] Montse Julian MD Unavailable [phone] Joao Perez MD Unavailable [phone] Transplant Episode Heart Recipient [facility] ([place], [place]) [facility] Organ Received: Heart Transplanted on 03/22/2021 Marked as Active Follow-up on 03/22/2021 Heart CoordinatorRose Stanford RN Fax: N/A Email: N/A [place] Organ Diagnosis Organ Primary Contributory Heart Valvular Heart Disease Retransplant Diagnosis Organ Primary Contributory Heart Valvular Heart Disease Rejection History Noted Survival Rejection Treatment Biopsy Resolved 05/14/2021 53 days Cardiac transplant rejection (HCC) Donor Information Organ ABO Source Meets Risk Criteria HLA Match Mismatches Cross Match Heart Transplanted A2 No A: B: DR: Heart Donor Serology Results Anti-CMV CMV IgG: Positive Anti-HBcAb HBC Total: Negative HBsAg HBsAg: Negative HBV DNA No results on file Anti-HCV HCV: Negative Anti-HIV I/II No results on file Anti-HTLV I/II HTLV: Not Done RPR/VDRL RPR: Negative HBsAb HBsAb: Not Done SARS CoV-2 No results on file Care Team Name Role Phone Fax Email Rose Stanford RN Well Surveying Engineer [phone] N/A N/A Rosie Wade Power Marketer [phone] N/A N/A Anthony Saenz MD [facility] [phone] N/A DAVE GoncalvesW Hardware Press Operator N/A N/A N/A Joao Perez MD Surgeon [phone] N/A Denita Feliciano Primary Rotary Drier Operator N/A N/A N/A Elisabeth Cortes RD Dietitian N/A N/A N/A Events Post-Transplant Pre-Transplant Admitted: 03/20/2021 Referred: 06/30/2016 Transplanted: 03/22/2021 Evaluation began: 6 Discharged: 04/08/2021 Center waitlisted: 8
--- OUTSIDE RECORDS SUMMARY | 2024-12-06 10:57 | XMS_ITS | Encounter Summary ---
Author Organization [facility] Address [address] [place] [id number] Care Team Providers Care Web Architect Name Role Phone Luis F Hughes DO Primary Care Provider [phone] Montse Julian MD Unavailable [phone] Joao Perez MD Unavailable [phone] Miscellaneous, Not In File Unavailable Unava ilable Encounter Details Date Type Department Care Team (Late st Contact Info) Description 11/15/2016 Orders Only [facility] Provider, MD Cookie [address] [place], [place] [id number] Social History Tobacco Use Types Packs/Day Years Used Date Smoking Tobacco: Never Alcohol Use Standard Drinks/Week Comments No 0 (1 standard drink = 0.6 oz pur e alcohol) Sex and Gender Information Value Date Recorded Sex Assigned at Not on file 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 Historical Provider [facility] ELZA MUIR Final Result documented in this encounter Visit Diagnoses Not on filedocumented in this encounter Care Teams Web Architect Relationship Specialty Start Date End Date Luis F Hughes DO PCP - General 10/29/16 Montse Julian MD [address] [place] [address] Consulting Physician Surgery 12/20/19 Joao Perez MD [id number] [place] [address] Surgeon Cardiothoracic Surgery 04/08/21 Miscellaneous, Not In File 04/15/21 12/06/21 documented as of this encounter
--- OUTSIDE RECORDS SUMMARY | 2024-12-06 10:57 | XMS_ITS | Encounter Summary ---
Author Organization [facility] Healthcare Address [address] [place] [address] Care Team Providers Care Picking Machine Operator Helper Name Role Phone Luis F Hughes DO Primary Care Provider [phone] Montse Julian MD Unavailable [phone] Joao Perez MD Unavailable [phone] Encounter Details Date Type Department Care Team (Late st Contact Info) Description 01/14/2022 Telephone [facility] Transplant Heart [address] [facility] [phone] [place] [address] Mendy Cavazos Social History Tobacco Use Types [...] on file 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 Gender Identity Male 10/12/2021 8:57 AM CDT Sexual Orientation Not on file documented as of this encounter Plan of Treatment Not on file documented as of this encounter Visit Diagnoses Not on filedocumented in this encounter Care Teams Picking Machine Operator Helper Relationship Specialty Start Date End Date Luis F Hughes DO PCP - General 10/29/16 Montse Julian MD [address] [facility] [address] [place] [address] Consulting Physician Surgery 12/20/19 Joao Perez MD [id number] [place] [address] Surgeon Cardiothoracic Surgery 04/08/21 documented as of this encounter
--- OUTSIDE RECORDS SUMMARY | 2024-12-06 10:57 | XMS_ITS | Referral Summary ---
Author Organization [facility] Address [address] [place] [address] Care Team Providers Care Director Of Business Services Name Role Phone Luis F Hughes DO Primary Care Provider [phone] Montse Julian MD Unavailable [phone] Joao Perez MD Unavailable [phone] Encounters Date Type Department Care Team Description 12/04/2024 Orders Only [facility] Transplant Heart [address] [facility] [address] [phone] [place] [address] Rose Stanford, impersonator character replaced by transplant (HCC) (Primary Dx) 10/25/2024 Telephone [facility] Transplant Heart [address] [facility] [address] 13-51-4 [place] [address] Rios Dewitt 10/25/2024 Telephone [facility] Transplant Heart [address] [facility] [address] [id number] [place] [address] Rose Stanford, FRANCOISE 10/24/2024 Telephone [facility] Transplant Heart [address] [facility] [address] [phone] [place], [place] [id number] Denita Feliciano from Last 3 Months Allergies Active Allergy Reactions Criticality Noted Date Comments Cefepime Urticaria Medium 03/01/2021 Penicillins Hives Medium Patient tolerated a course of amoxicillin in October 2022 (confirmed by Kim PresleyD). Medications aspirin 81 mg enteric coated tablet Take 81 mg by mouth daily Active testosterone cypionate (DEPO-TESTOTERONE ) 200 mg/mL injection 1 mL (200 mg total) once a week 3 Active therapeutic multivitamin (THERA) tablet Take 1 tablet by mouth daily Active furosemide (LASIX) 20 mg tablet Take 1 tablet (20 mg total) by mouth daily as needed (swelling) 30 tablet 1 3 Active predniSONE (DELTASONE) 5 mg tablet TAKE 1 TABLET BY MOUTH DAILY 90 tablet 3 4 Active rosuvastatin (CRESTOR) 20 mg tablet TAKE 1 TABLET(20 MG) BY MOUTH EVERY NIGHT 90 tablet 3 4 Active cholecalciferol (VITAMIN D-3) 2000 unit capsule TAKE 1 CAPSULE BY MOUTH DAILY 30 capsule 11 4 Active losartan (COZAAR) 50 mg tablet TAKE 1 TABLET(50 MG) BY MOUTH DAILY 90 tablet 3 4 Active valACYclovir (VALTREX) 500 mg tablet Valtrex 500 mg po bid x 10 days, number 20, 6 rf 20 tablet 6 5 Active tacrolimus 1 mg immediate-release capsule Take 3 capsules (3 mg total) in the AM and take 2 capsules (2 mg total) in the PM 150 capsule 11 5 Active mycophenolate mofetil (CELLCEPT) 500 mg tablet Take 1 tablet (500 mg total) by mouth 2 (two) times a day 60 tablet 11 5 Active clindamycin (CLEOCIN) 300 mg capsule TAKE 2 CAPSULE BY MOUTH 1 HOUR PRIOR TO DENTIST PROCEDURE 2 capsule 5 Active Active Problems Problem Noted Date Diagnosed Date Heart replaced by transplant 12/15/2022 Ulcer of esophagus without bleeding 05/06/2022 Overview (05/06/2022): Added automatically from request for surgery [id number] Gastroesophageal reflux disease 03/29/2022 Overview (03/29/2022): Added automatically from request for surgery [id number] Mouth sores 03/11/2022 Assessment & Plan (03/13/2022 10:26 AM CDT): Multiple painful shallow based oral ulcers on lips and buccal mucosa that worsened/unresolved despite stopping mTOR inhibitor. Suspect secondary to immunosuppressive therapy, but will evaluate and r/o other etiologies. Unfortunately, pt is caught between Scylla and Charybdis as usually would favor reducing antimetabolite therapy given its predilection in causing these sores but he was transplanted against +crossmatch and had elevated AT1R Ab with RV dysfunction so needs intensive immunosuppression. 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 Will plan to discharge and discuss restarting low dose MMF or AZA -per dermatology, 2% viscous lidocaine or magic mouthwash PRN, topical clobetasol gel BID and prophylactic clotrimazole troches QID -dermatology to set up outpatient follow up and re-evaluate in 1-2 months for biopsy if it does not improve to evaluate for malignancy -HSV and VZV negative -cultures growing GPC, GNB, unclear clinical significance -check inflammatory and nutritional markers although unlikely to be Behcets -pain control Assessment & Plan (03/12/2022 12:48 PM CDT): Multiple painful shallow based oral ulcers on lips and buccal mucosa that worsened/unresolved despite stopping mTOR inhibitor. Suspect secondary to immunosuppressive therapy, but will evaluate and r/o other etiologies. Unfortunately, pt is caught between Scylla and Charybdis as usually would favor reducing antimetabolite therapy given its predilection in causing these sores but he was transplanted against +crossmatch and had elevated AT1R Ab with RV dysfunction so needs intensive immunosuppression. Also needs to r/o infection/malignancy as well - Continue tacrolimus, MMF, and pred for now - Will discuss senior care IS regimen tomorrow at multidisciplinary meeting. Given relative stability of most recently biopsies, it may be reasonable to try dose-decreasing MMF for now in hopes to improving his oral ulcers - Wound swab for culture and HSV/CMV/VZV DNA PCR - Check inflammatory and nutritional markers although unlikely to be Behcets - Pain control - Derm and OFMS consulted Hypertension 01/21/2022 Overview (01/21/2022): Added automatically from request for surgery [id number] Hyperlipidemia 01/21/2022 Overview (01/21/2022): Added automatically from request for surgery [id number] Vitamin D deficiency 01/21/2022 Overview (01/21/2022): Added automatically from request for surgery [id number] Cardiac transplant rejection 05/14/2021 Encounter for long-term (cur rent) use of high-risk medication 05/01/2021 Encounter for aftercare following heart transpla nt 05/01/2021 Pericardial effusion 04/10/2021 Overview (05/01/2021): Postoperative pericardial effusion - s/p window Assessment & Plan (04/15/2021 2:28 PM CDT): S/p pericardial window 04/10/2021 Chest tube remains to suction OOB, IS Will monitor I/O Lasix 40 po daily Will ck triglyceride and chlymicrone levels on pleural fluid today CT removed today FU CXR TTE ordered DC planning S/P orthotopic heart transplant 03/26/2021 Overview (12/07/2021): OHTx 03/22/2021 Valvular heart disease, multiple sternotomies, IABP BTT Positive crossmatch - Received IVIG/PLEX x 5 followed by Thymoglobulin PRA: Class I current 82 %; Class II current 0 % CMV Donor: positive/Recipient: positive EBV Recipient: positive / Toxo Donor: negative / High Risk Donor: No AT1R 32 on 05/2021 - treated with ARB and Ritixumab quarterly infusion Quad immune suppression regiment Assessment & Plan (03/13/2022 7:51 AM CDT): OHT c/b positive crossmatch and AT1R Ab on quarterly rituximab -exam remains stable from CV standoint -oral lesion work-up as above -Continue tacrolimus and prednisone as above, holding MMF - ASA/rosuva/bactrim for prophylaxis -tele Assessment & Plan (03/12/2022 12:53 PM CDT): OHT c/b positive crossmatch and AT1R Ab on quarterly rituximab -exam remains stable from CV standoint -oral lesion work-up as above -Continue tac/MMF/pred per above - ASA/rosuva/bactrim for prophylaxis -tele Assessment & Plan (04/11/2021 10:17 AM CDT): Tac levels q am Med management per heart transplant team Assessment & Plan (04/07/2021 8:11 AM CDT): --S/p Ortho topic Heart transplant 03/22 [s/p Left ax IABP from 02/17-02/19 & Rt fem IABP] --new heart is DSA +-- 5 days of pheresis completed on 03/27. 03/27-03/29 Thymo, 04/01 IVIG x 1 dose ---antiviral (CMV R+, intermediate risk): -- Heart transplant team managing immunosuppression and prophylaxis --Ongoing post-op care with physical therapy & pulmonary toilet --daily tacro trough --PPI for GI prophylaxis --MCT x1 continue with decreasing tube output (24 hr averages) --Chyle check of tube output returned negative --04/03 Embx #1- RA 10 path pending --04/03 ECHO w/ results including: Moderate-sized anterior pericardial effusion (appears loculated) - no tamponade. Normal LV chamber size. Hyperdynamic LV systolic function (calculated LVEF 77%).....Estimated PASP 40 mmHg + RA pressure. Mild biatrial enlargement (visual estimate)..... (estimated RA pressure 3-5 mmHg)..... (Consider repeat echo today) Depression 03/04/2015 Overview (11/05/2016): Depression Obstructive sleep apnea syndrome 09/23/2014 Overview (11/05/2016): TEODORA (obstructive sleep apnea) Resolved Problems Problem Noted Date Diagnosed Date Resolved Date Hypernatremia 03/26/2021 03/31/2021 Assessment & Plan (03/30/2021 1:20 PM CDT): - resolving - Trend BMP daily Hyperglycemia 03/26/2021 05/01/2021 Assessment & Plan (04/04/2021 11:11 AM CDT): --HGB A1C on admission = 5.0 --on steroids for immunosuppression --SSI, POC Glucose AC and HS --Speech eval 03/30, clear for regular/ regular MOSHE (acute kidney injury) 03/26/2021 Assessment & Plan (03/29/2021 10:40 AM CDT): - post op MOSHE adequate UOP no diuretics - BUN and CRE elevated but down trending - Avoid nephrotoxic medications - trend BMP daily Anemia 03/26/2021 05/01/2021 Assessment & Plan (04/07/2021 8:09 AM CDT): --Expected s/p heart transplant (post-op ABLA) --Ongoing daily CBC -- Transfuse if HGB is less that 7.5 - CT output now moderate-no air leak, serosanguinous fluid Pre-transplant evaluation fo r heart transplant 02/18/2021 03/26/2021 Cardiogenic shock 01/19/2021 03/28/2021 Overview (02/27/2021): Added automatically from request for surgery [id number] Assessment & Plan (03/27/2021 1:23 PM CDT): S/p Heart transplant IABP removal post op 03/27 Dobutamine gtt dc'd End stage heart failure 01/19/2021 08/12/2020 Overview (03/20/2021): Added automatically from request for surgery [id number] Obesity with body mass index 30 or greater 05/19/2017 09/03/2019 Atrial fibrillation ([facility]) [I48.91] 01/06/2017 04/04/2021 watermaster (current) use of a nticoagulants [Z79.01] 01/06/2017 04/04/2021 Aortic valve disorder 01/06/20172020 Vascular disorder 12/07/2016 09/03/2019 Need for immunization against influenza 05/11/2016 05/01/2021 Valvular regurgitation 03/29/201604/04 Pulmonary hypertension ([facility]) 10/15/2015 04/04/2021 Overview (11/05/2016): Pulmonary HTN Non-rheumatic tricuspid valve insufficiency 10/15/2015 04/04/2021 Overview (11/05/2016): Non-rheumatic tricuspid valve insufficiency History of tricuspid valve repair 07/22/2015 04/04/2021 Overview (11/05/2016): S/P tricuspid valve repair History of mitral valve repl acement with mechanical valve 07/22/2015 04/04/2021 Overview (11/05/2016): S/P mitral valve replacement with metallic valve Aneurysm of aortic root ([facility]) 07/22/2015 04/04/2021 Overview (11/05/2016): Aortic root aneurysm Cardiac defibrillator in place 07/22/2015 04/04/2021 Overview (01/15/2017): Medtronic Viva Quad BI-V ICD implanted 05/30/2015 for NICM/CHF/CHB-[place] kxmjkbr-Ngemjwj-Ifqg.-CL[facility] Surgical follow-up care 07/03/201509/2019 Overview (11/05/2016): Surgical follow-up care Chronic systolic heart failure ([facility]) 03/04/2015 03/26/2021 Overview (11/05/2016): Chronic systolic heart failure History of heart valve repair 03/04/2015 04/04/2021 Overview (11/05/2016): S/P mitral valve repair History of anticoagulant therapy 01/20/2015 04/04/2021 Overview (11/05/2016): Chronic anticoagulation Acute systolic heart failure 01/20/2015 09/03/2019 Overview (11/05/2016): Acute systolic heart failure History of mitral valve replacement 01/20/2015 04/04/2021 Overview (11/05/2016): Status post mechanical aortic valve replacement Aortic valve stenosis 11/26/20142020 Cardiomyopathy 09/23/2014 03/26/2021 Overview (11/05/2016): Cardiomyopathy Vasovagal syncope 09/23/2014 09/03/2019 Overview (11/05/2016): Syncope, vasovagal Aortic valve insufficiency 09/23/2014 0 04/04/2021 Overview (11/05/2016): Aortic regurgitation Aortic aneurysm (CMS/HCC) 09/23/2014 Overview (11/05/2016): Aortic aneurysm Benign hypertension 09/23/2014 05/01/20 Overview (11/05/2016): HTN (hypertension), benign Immunizations Immunization Administration Dates Next Due Influenza, Quadrivalent, Spl it, Preservative Free, Intramuscular 06/04/2019,04/30/2018,04/29/2018,05/16 Influenza, Trivalent, Preser vative Free, Intramuscular 05/11/2016 Social History Tobacco Use Types Packs/Day Years Used Date Smoking Tobacco: Never Smokeless Tobacco: Never Tobacco Cessation:Counseling Given: Not Answered Alcohol Use Standard Drinks/Week Comments No 0 (1 standard drink = 0.6 oz pur e alcohol) AUDIT-C Answer Date Recorded Q1: How often do you have a drink containing alc ohol? Never 04/06/2022 Average Number of Drinks Not on file 022 Frequency of Binge Drinking Not on file 12/2021 Personal Safety Answer Date Recorded Have you ever been in or are you currently in a harmful physical or emotional relationship or is someone making you feel afraid or unsafe? 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 Gender Identity Male 10/12/2021 8:57 AM CDT Sexual Orientation Not on file Last Filed Vital Signs Vital Sign Reading Time Taken Comments Blood Pressure 144/62 03/01/2024 12:30 PM CDT Pulse 79 03/01/2024 12:30 PM CDT Temperature 36.6 C (97.9 F) 03/01/2024 9:01 AM CDT Respiratory Rate 20 03/01/2024 12:30 PM CDT Oxygen Saturation 95% 03/01/2024 12:30 PM CDT Inhaled Oxygen Concentration - - Weight 129.3 kg (285 lb) 03/01/2024 9:12 AM CDT Height 185.4 cm (6' 1 ) 03/01/2024 9:12 AM CDT Body Mass Index 37.6 03/01/2024 9:12 AM CDT Plan of Treatment Not on file Medical Devices Implanted Type Area Vending Service Technician Device Identifier Shelf Expiration Date Model / Serial / Lot Icd-05/30/2015 Implanted: 5 by Sheldon Rodriguez MD (Quantity not on file) ICD Left: Chest Medtronic [employer] VIVA QUAD FAMILY CONSUMER SCIENCE FCS TEACHER D / [id number] / Description: This patient has a Medtronic Viva Quad BI-V ICD implanted 05/30/2015 for NICM/CHF/CHB, he had a (1) shock for VF (appropriate) a couple of weeks ago, he is in the office today for a device check and clearing his alarm. He is on Warfarin for a Mechanical valve. He is accompanied by his today. He and his told me that he is seeing Dr. Saenz and he is probably going to be listed for cardiac transplant in the near future. The patient has an incision to the left pectoral area, that is well healed W/O signs of infection. Interrogation of his device demonstrates that the Bi-V/ICD is functioning appropriately according to the manufacturers recommendations with appropriate battery voltage, charge time, shock impedances, lead impedances, stable atrial and RV sensing TH, stable atrial, RV, and CS pacing TH. There were no atrial arrhythmias noted. The patient had a episode of VF that was appropriately treated with a 36.2 joule shock successfully, he was not aware of the shock as it was at night while he was sleeping. There were (9) non-sustained VT episode, IEGM s non sustained VT, no therapy was required. Opticol Thoracic impedance monitor is negative for thoracic impedance changes suggestive of ongoing CHF. AP-3 %, Bi-V paced-98 % Presenting Rhythm-Atrial tracking with Bi-V paced Underlying Rhythm-No ventricular escape at VVI 30 BPM. Battery V- 2.96 V, 5.2 years to GALLO, Charge Time 8.9 sec., Shock impedances: 67 ohms Atrial-2.9 mv, 475 ohms, 0.625 V @ .50 ms RV- 5.5 mv-device measured, 456 ohms, 0.625 V @ .50 ms CS-Lv2 to LV3 418 ohms, 1.0 V @ .50 ms No programming changes I will forward this information to Dr. Gomez office Anuradha Velazco RN, [facility], CCDS-Arrhythmia Device Specialist Busy Moos 1100-04-1396-01 Cath Iab 6in 7.5fr Linear .025in Durathane Insertion Kit - [id number] Implanted:Qty: 1 on 02/17/2021 by Dion Catherine MD at [facility] Other - see comments [employer] 03/31/202384-00- 0480-01 / / [id number] Description:IABP Busy Moos [id number] Cath Iab 6in 8fr 17.4mm Howie Statlock 2 Device Insertion Kit - [id number] - [id number] Implanted:Qty: 1 on 03/06/2021 by Dion Catherine MD at [facility] Other - see comments [employer] 06/17/20228400- [id number] / [id number] [id number] Cassie-Guard [place] Processing 14x8cm Multidirectional Fiber Patch - [id number] Implanted:Qty: 1 on 03/22/2021 by Joao Perez MD at [facility] N/A: Chest [facility] 11/20/2025 [id number] / / [id number] Procedures Procedure Name Priority Date/Time Associated Diagnosis Comments HEPATITIS C RNA, QUANTITATIVE, PCR Routine 04/27/2021 1:57 PM CDT Aftercare following organ transplant Inconclusive laboratory evidence of human immunodeficiency virus (HIV) from Last 3 Months or Most Recently Relevant to Health Maintenance Results * Hepatitis C (HCV) RNA PCR, quantitative (04/27/2021 1:57 PM CDT) [facility] HCV RNA result Not Detected [facility] Comment: Interpretive data: The quantifiable range of this assay is 15 IU/mL to 100,000,000 IU/mL (1.18 log IU/mL to 8.00 log IU/mL). Testing was performed by the MAR[facility] AmpliPrep/MARINA TaqMan HCV Test version 2.0 ([employer] Testing performed at [facility] Current Interpretive Data was last revised on 2015. Blood 04/27/2021 1:57 PM CDT 04/27/2021 3:55 PM CDT us Bao Michelle MD PhD LAB MICROBIOLOGY - GENERAL ORDERABLES Final Result [facility] Department [place] [address] from Last 3 Months or Most Recently Relevant to Health Maintenance Insurance [facility] H[facility]/PPO Address: [address] [address] [place] [address] [facility] [place] [address] [place] [address] [employer] [facility] TRANSPLANT AETNA TRANSPLANT AETNA Advance Directives For more information, please contact: [phone] Documents on File Type Date Recorded Patient Drapery Head Former Expl anation ADVANCE DIRECTIVE 09/05/2019 5:32 PM * Full Code (Latest Code Status on File) Date Activated Date Inactivated Comments 03/01/2024 8:48 AM 03/02/2024 4:39 AM * Full Code Date Activated Date Inactivated Comments 03/17/2023 10:26 AM 03/18/2023 4:38 AM * Full Code Date Activated Date Inactivated Comments 04/06/2022 11:13 AM 04/06/2022 5:38 PM * Full Code Date Activated Date Inactivated Comments 03/11/2022 8:17 PM 03/13/2022 5:19 PM * Full Code Date Activated Date Inactivated Comments 02/25/2022 7:21 AM 02/26/2022 4:46 AM Care Teams Director Of Business Services Relationship Specialty Start Date End Date Luis F Hughes DO PCP - General 10/29/16 Montse Julian MD [address] [facility] [address] [place] [address] Consulting Physician Surgery 12/20/19 Joao Perez MD [id number] [place] [address] Surgeon Cardiothoracic Surgery 04/08/21
--- OUTSIDE RECORDS SUMMARY | 2024-12-06 10:57 | XMS_ITS | Encounter Summary ---
Author Organization [facility] Healthcare Address [address] [place] [address] Care Team Providers Care Swimming Instructor Name Role Phone Luis F Hughes DO Primary Care Provider [phone] Montse Julian MD Unavailable [phone] Joao Perez MD Unavailable [phone] Encounter Details Date Type Department Care Team (Late st Contact Info) Description 03/19/2022 Telephone [facility] Transplant Heart [address] [facility] [address] [id number] [place] [address] Mendy Cavazos Social History Tobacco Use Types [...] on file Legal Sex Male 3:34 AM FIRER LOW PRESSURE Gender Identity Male 10/12/2021 8:57 AM CDT Sexual Orientation Not on file documented as of this encounter Plan of Treatment Not on file documented as of this encounter Visit Diagnoses Not on filedocumented in this encounter Care Teams Swimming Instructor Relationship Specialty Start Date End Date Luis F Hughes DO PCP - General 10/29/16 Montse Julian MD [address] [facility] [address] [place] [address] Consulting Physician Surgery 12/20/19 Joao Perez MD [id number] [place] [address] Surgeon Cardiothoracic Surgery 04/08/21 documented as of this encounter
--- OUTSIDE RECORDS SUMMARY | 2024-12-06 10:57 | XMS_ITS | Encounter Summary ---
Author Organization [facility] Healthcare Address [address] [place] [address] Care Team Providers Care Nutrition Services Aide Name Role Phone Luis F Hughes DO Primary Care Provider + [phone] Montse Julian MD Unavailable [phone] Joao Perez MD Unavailable [phone] Miscellaneous, Not In File Unavailable Unava ilable Encounter Details Date Type Department Care Team (Late st Contact Info) Description 11/06/2018 Telephone 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 Gender Identity Male 10/12/2021 8:57 AM CDT Sexual Orientation Not on file documented as of this encounter Plan of Treatment Not on file documented as of this encounter Visit Diagnoses Not on filedocumented in this encounter Care Teams Nutrition Services Aide Relationship Specialty Start Date End Date Luis F Hughes DO PCP - General 10/29/16 Montse Julian MD [address] [facility] [address] [facility] [address] [place] [address] Consulting Physician Surgery 12/20/19 Joao Perez MD [id number] [place] [address] Surgeon Cardiothoracic Surgery 04/08/21 Miscellaneous, Not In File 04/15/21 12/06/21 documented as of this encounter
--- OUTSIDE RECORDS SUMMARY | 2024-12-06 10:57 | XMS_ITS | Encounter Summary ---
Author Organization [facility] Medical Group Address [address] [facility] [address] [place] [address] Care Team Providers Care Public Administration Professor Name Role Phone Luis F Hughes DO Primary Care Provider [phone] Montse Julian MD Unavailable [phone] Joao Perez MD Unavailable [phone] Miscellaneous, Not In File Unavailable Unava ilable Encounter Details Date Type Department Care Team (Late st Contact Info) Description 12/19/2016 Orders Only [facility] Provider, MD Cookie [address] [place], [place] [id number] Social History Tobacco Use Types Packs/Day Years Used Date Smoking Tobacco: Never Alcohol Use Standard Drinks/Week Comments No 0 (1 standard drink = 0.6 oz pur e alcohol) Sex and Gender Information Value Date Recorded Sex Assigned at Not on file Legal 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 Historical Provider [facility] ELZA MUIR Final Result documented in this encounter Visit Diagnoses Not on filedocumented in this encounter Care Teams Public Administration Professor Relationship Specialty Start Date End Date Luis F Hughes DO PCP - General 10/29/16 Montse Julian MD [address] [place] [address] Consulting Physician Surgery 12/20/19 Joao Perez MD [id number] [place] [address] Surgeon Cardiothoracic Surgery 04/08/21 Miscellaneous, Not In File 04/15/21 12/06/21 documented as of this encounter
--- OUTSIDE RECORDS SUMMARY | 2024-12-06 10:57 | XMS_ITS | Clinical Summary ---
Author Organization [facility] Address [address] [place] [address] Care Team Providers Care Cook Frozen Dessert Name Role Phone Luis F Hughes DO Primary Care Provider [phone] Montse Julian MD Unavailable [phone] Joao Perez MD Unavailable [phone] Allergies Active Allergy Reactions Criticality Noted Date [...] (05/06/2022): Added automatically from request for surgery [id number] Gastroesophageal reflux disease 03/29/2022 Overview (03/29/2022): Added automatically from request for surgery [id number] Mouth sores 03/11/2022 Assessment & Plan (03/13/2022 [...] and pred for now - Will discuss intermediate IS regimen tomorrow at multidisciplinary meeting. Given [...] (01/21/2022): Added automatically from request for surgery [id number] Hyperlipidemia 01/21/2022 Overview (01/21/2022): Added automatically from request for surgery [id number] Vitamin D deficiency 01/21/2022 Overview (01/21/2022): Added automatically from request for surgery [id number] Cardiac transplant rejection 05/14/2021 Encounter for long-term [...] (02/27/2021): Added automatically from request for surgery [id number] Assessment & Plan (03/27/2021 1:23 PM CDT): S/p Heart transplant IABP removal post op 03/27 Dobutamine gtt dc'd End stage heart failure 01/19/202103/02 Overview (03/20/2021): Added automatically from request for surgery [id number] Obesity with body mass index 30 or greater 05/19/2017 09/03/2019 Atrial fibrillation ([facility]) [I48.91] 01/06/2017 04/04/2021 manager long term care (current) use of a nticoagulants [Z79.01] 01/06/2017 04/04/2021 Aortic valve disorder 01/06/20172020 Vascular disorder 12/07/2016 09/03/2019 Need for immunization against influenza 05/11/2016 05/01/2021 Valvular regurgitation 03/29/201604/04 Pulmonary hypertension ([facility]) 10/15/2015 04/04/2021 Overview (11/05/2016): Pulmonary HTN Non-rheumatic tricuspid valve insufficiency 10/15/2015 04/04/2021 Overview (11/05/2016): Non-rheumatic tricuspid valve insufficiency History of tricuspid valve repair 07/22/2015 04/04/2021 Overview (11/05/2016): S/P tricuspid valve repair History of mitral valve repl acement with mechanical valve 07/22/2015 04/04/2021 Overview (11/05/2016): S/P mitral valve replacement with metallic valve Aneurysm of aortic root ([facility]) 07/22/2015 04/04/2021 Overview (11/05/2016): Aortic root aneurysm Cardiac defibrillator in place 07/22/2015 04/04/2021 Overview (01/15/2017): Medtronic Viva Quad BI-V ICD implanted 05/30/2015 for NICM/CHF/CHB-Krainik vzsuwoi-Deniiiq-Zijo.-CL-Followed at the [facility] Surgical follow-up care 07/03/201509/2019 Overview (11/05/2016): Surgical follow-up care Chronic systolic heart failure ([facility]) 03/04/2015 03/26/2021 Overview (11/05/2016): Chronic systolic heart [...] 04/04/2021 Overview (11/05/2016): Aortic regurgitation Aortic aneurysm ([facility]) 09/23/2014 Overview (11/05/2016): Aortic aneurysm Benign hypertension 09/23/2014 05/01/20 Overview (11/05/2016): HTN (hypertension), benign Encounters Date Type Department Care Team Description 12/04/2024 Orders Only [facility] Transplant Heart [address] [place] [address] [address] [place] [phone] Rose Stanford, family medicine physician assistant replaced by transplant ([facility]) (Primary Dx) 10/25/2024 Telephone [facility] Transplant Heart [address] [place] [address] [address] [place] [address] Rios Dewitt 10/25/2024 Telephone [facility] Transplant Heart [address] [place] [address] [address] [place] [address] Rose Stanford, RN 10/24/2024 Telephone [facility] Transplant Heart [address] [place] [address] [address] [place] [address] Denita Feliciano from Last 3 Months Immunizations Immunization Administration Dates Next Due Influenza, Quadrivalent, Spl it, Preservative Free, Intramuscular 06/04/2019,04/30/2018,04/29/2018,05/16 Influenza, Trivalent, Preser vative Free, Intramuscular 05/11/2016 Surgical History Surgery Date Site/Laterality Comments AORTIC VALVE REPLACEMENT 11/29/2014 - 12/29/2014 MITRAL VALVE SURGERY 09/03/2015 trans-septal mitral PVL closure CARDIAC DEFIBRILLATOR PLACEMENT 08/01/2014 - 07/31/2015 removal CARDIAC CATHETERIZATION ORTHOTOPIC HEART TRANSPLANT 08/01/2020 - 07/31/2021 Medical History Medical History Date Comments Hypertension Sleep apnea NICM (nonischemic cardiomyopathy) ([facility]) Pulmonary hypertension ([facility]) 10/15/2015 MOSHE (acute kidney injury) 03/26/2021 Heart transplant status ([facility]) Family History Medical History Relation Name Comments No Known Problems Brother 1 No Known Problems Brother 2 No Known Problems Daughter No Known Problems Father Aortic valve disease Maternal Grandfather No Known Problems Mother No Known Problems Sister No Known Problems Son Relation Name Status Comments Brother 1 Alive Brother 2 Alive Daughter Alive Father Alive Maternal Grandfather Mother Alive Sister Alive Son Alive Social History Tobacco Use Types Packs/Day Years [...] on file 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 Gender Identity Male 10/12/2021 8:57 AM CDT Sexual Orientation Not on file Obstetrics History Last Filed Vital Signs Vital Sign Reading [...] 03/01/2024 9:12 AM CDT Plan of Treatment Health Maintenance Due Date Last Done Comments Colon Cancer Screening-Colonoscopy 1977 Depression Screening 1977 DTaP/Tdap/Td Vaccine (1 - Tdap) 1988 Hepatitis B Screening 1995 Regular Well Visit/Exam 18-64 1995 Pneumococcal vaccine <65 (1 of 2 - PCV) 1996 Zoster Vaccine (1 of 2) 1996 Covid-19 Vaccine (3 - Modern a risk series) 11/29/2020 11/01/2020, 10/04/2020 Influenza Vaccine (Season Ended) 2025 06/04/2019, 04/30/2018, 04/29/2018, Additional history exists Hepatitis C Screening Completed 04/27/2021 , 03/20/2021, 03/20/2021, Additional history exists Medical Devices Implanted Type Area Chef Head Device Identifier Shelf Expiration Date Model / Serial / Lot Icd-05/30/2015 Implanted: 5 by Sheldon Rodriguez MD (Quantity not on file) ICD Left: Chest Medtronic Inc VIVA QUAD ROUND CUTTER OPERATOR D / [id number] / Description: This patient has a [...] to Dr. Gomez office Anuradha Velazco RN, RS, CCDS-Arrhythmia Device Specialist [email or web address] 1989-06-2913-01 Cath Iab 6in 7.5fr Linear .025in Durathane Insertion Kit - [id number] Implanted:Qty: 1 on 02/17/2021 by Dion Catherine MD at [facility] Other - see comments [employer] 03/31/2023 0684-00- 0480-01 / / [id number] Description:IABP [email or web address] [id number] Cath Iab 6in 8fr 17.4mm Howie Statlock 2 Device Insertion Kit - [id number] - [id number] Implanted:Qty: 1 on 03/06/2021 by Dion Catherine MD at [facility] Other - see comments [employer] 06/17/2022 0684-00- [id number] / [id number] Sun-eee [id number] Cassie-Guard [employer] Processing 14x8cm Multidirectional Fiber Patch - [id number] Implanted:Qty: 1 on 03/22/2021 by Joao Perez MD at [facility] N/A: Chest [employer] 11/20/2025 [id number] / / [id number] Procedures Procedure Name Priority Date/Time Associated Diagnosis Comments HEPATITIS C RNA, QUANTITATIVE, PCR Routine 04/27/2021 1:57 PM CDT Aftercare following organ transplant Inconclusive laboratory evidence of human immunodeficiency virus (HIV) from Last 3 Months or Most Recently Relevant to Health Maintenance Results * Hepatitis C (HCV) RNA PCR, quantitative (04/27/2021 1:57 PM CDT) HCV RNA result Not Detected MARILIN GARCIA Comment: Interpretive data: The quantifiable range of this assay is 15 IU/mL to 100,000,000 IU/mL (1.18 log IU/mL to 8.00 log IU/mL). Testing was performed by the MARINA AmpliPrep/MARINA TaqMan HCV Test version 2.0 ([employer] Testing performed at [facility] Current Interpretive Data was last revised on 2015. Blood 04/27/2021 1:57 PM CDT 04/27/2021 3:55 PM CDT us Bao Michelle MD PhD LAB MICROBIOLOGY - GENERAL ORDERABLES Final Result [facility]IN [facility] [place] [address] from Last 3 Months or Most Recently Relevant to Health Maintenance Insurance [facility] CHOICE PLUS [facility] [place] [address] TRANSPLANT AETNA [facility] TRANSPLANT A[employer] TRANSPLANT A[employer] Advance Directives For more information, please contact: [phone] Documents on File Type Date Recorded Patient Classroom Monitor Expl anation ADVANCE DIRECTIVE 09/05/2019 5:32 PM [...] 7:21 AM 02/26/2022 4:46 AM Care Teams Cook Frozen Dessert Relationship Specialty Start Date End Date Luis F Hughes DO PCP - General 10/29/16 Montse Julian MD [address] [facility] [address] [place] [address] Consulting Physician Surgery 12/20/19 Joao Perez MD [id number] [place] [address] Surgeon Cardiothoracic Surgery 04/08/21
--- OUTSIDE RECORDS SUMMARY | 2024-12-06 10:57 | XMS_ITS | Encounter Summary ---
Author Organization [facility] Medical Group Address [address] [facility] [address] [place] [address] Care Team Providers Care Guidance Consultant Name Role Phone Luis F Hughes DO Primary Care Provider [phone]- [phone] Luis F Hughes DO Primary Care Provider [phone]- [phone] Luis F Hughes DO Primary Care Provider [phone]- [phone] Montse Julian MD Unavailable [phone] Joao Perez MD Unavailable [phone] Miscellaneous, Not In File Unavailable Unava ilable Encounter Details Date Type Department Care Team (Late st Contact Info) Description 08/16/2016 Orders Only [facility] ProviderCookie MD [address] [place] [address] Social History Tobacco Use Types Packs/Day Years Used Date Smoking Tobacco: Never Alcohol Use Standard Drinks/Week Comments No 0 (1 standard drink = 0.6 oz pur e alcohol) Sex and Gender Information Value Date Recorded Sex Assigned at Not on file 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 us Historical Provider [facility] ELZA MUIR Final Result documented in this encounter Visit Diagnoses Not on filedocumented in this encounter Care Teams Guidance Consultant Relationship Specialty Start Date End Date Luis F Hughes DO PCP - General 10/29/16 Luis F Hughes DO PCP - General 10/15/16 10/28/16 Luis F Hughes DO PCP - General 11/15/15 10/14/16 Montse Julian MD [address] [address] Consulting Physician Surgery 12/20/19 Joao Perez MD [id number] [place] [address] Surgeon Cardiothoracic Surgery 04/08/21 Miscellaneous, Not In File 04/15/21 12/06/21 documented as of this encounter
[2024-12-06 20:40] LABS: Prostate Specific Antigen 0.6 ng/mL (< OR = 4.0)
[2024-12-11 09:54] LABS: Testosterone Free 147.7 pg/mL (35.0-155.0); Testosterone Total 619 ng/dL (250-1100)
== END 2024-12-06 10:46 | disposition home or self-care (01) ==
PROVIDERS: PCP Internal Medicine; Visit Provider Internal Medicine
DX: Z12.5 Encounter for screening for malignant neoplasm of prostate (principal); E29.1 Testicular hypofunction; Z79.890 Hormone replacement therapy
CPT/HCPCS: 36415; 84153; 84402; 84403

== ENCOUNTER 2025-03-11 12:39 | Outpatient (RCR) | payer OTHER, SELFPAY ==
[2025-03-11 18:24] LABS: Hematocrit 51.5 % (42.0-52.0); Hemoglobin 16.5 g/dL (14.0-18.0); Immature Granulocyte Percent A 0.2 % (0-0.5); Lymphocytes Absolute Auto 1.17 K/mm3 (0.9-3.2); Mean Corpuscular HGB Conc 32.0 g/dl (32-36); Mean Corpuscular Hemoglobin 28.4 pg (26-34); Mean Corpuscular Volume 88.8 fl (80-100); Nucleated Red Blood Cells Absolute Auto 0.000 K/mm3 (0.0-0.012); Nucleated Red Blood Cells Perc 0.0 % (0.0-0.2); Platelet Count Result 152 k/mm3 (150-375); Red Blood Count 5.80 M/mm3 (4.6-6.20); White Blood Count 6.5 K/mm3 (4.5-10.0)
[2025-03-11 18:39] LABS: Anion Gap 7 mmol/L (4-12); Blood Urea Nitrogen 25 mg/dL (9-20); Calcium 8.9 mg/dL (8.4-10.2); Carbon Dioxide 26 mmol/L (22-30); Chloride 104 mmol/L (98-107); Estimated Glomerular Filt Rate 56; Glucose 80 mg/dL (65-110); Potassium 4.3 mmol/L (3.4-5.0); Sodium 137 mmol/L (137-145)
[2025-03-14 05:08] LABS: Tacrolimus (FK506), Blood 8.6 ng/mL (5.0-20.0)
== END 2025-06-09 23:59 | disposition home or self-care (01) ==
LOC: ANHGOSHLAB 12:39
PROVIDERS: PCP Internal Medicine; Visit Provider Internal Medicine
DX: Z94.1 Heart transplant status (principal)
CPT/HCPCS: 36415; 80048; 80197; 85025

== ENCOUNTER 2025-06-14 10:52 | Outpatient (CLI) | payer OTHER, SELFPAY ==
[2025-06-14 14:04] LABS: Cholesterol 106 mg/dL (0-200); HDL Direct 42 mg/dL; Triglycerides 54 mg/dL (<150)
[2025-06-18 22:07] LABS: Free Testosterone (Direct) 25.0 pg/mL (6.8-21.5)
== END 2025-06-14 10:53 | disposition home or self-care (01) ==
LOC: ANHGOSHLAB 10:52
PROVIDERS: PCP Internal Medicine; Visit Provider Internal Medicine
DX: E78.5 Hyperlipidemia, unspecified (principal); Z79.890 Hormone replacement therapy
CPT/HCPCS: 36415; 80061; 82172; 84402; 84403